=== PATIENT | female | born 1950 | race Caucasian/White ===

== ENCOUNTER → 2023-05-28 | Outpatient (CLI) | payer MEDICARE, OTHER ==
--- NOTE | 2023-05-28 14:59 | MR ---
MR MRCP INDICATION: Patient age:Female; 72 years old; Reason for study: K80.20 CALCULUS OF GALLBLADDER W/O CHOLECYSTITIS W; [facility]. COMPARISON: None. TECHNIQUE: Multi planar, T2-weighted imaging with and without fat saturation and chemical shift imag ing was performed of the abdomen. Then, heavily T2 weighted imaging was utilized in order to study th e biliary system. Maximum intensity projection images were reconstructed from the original data of t he biliary tree. No Gadolinium given. FINDINGS: MRCP: The intrahepatic ducts have a normal appearance. The common bile duct at the level of the ames creatic head measures 4 mm in size. No filling defects to suggest choledocholithiasis. The common hep atic duct measures 3 mm in size. The pancreatic duct is normal. The gallbladder is surgically absent. Abdomen: The spleen, adrenal glands, and pancreas have a normal noncontrast appearance. Inferior righ t hepatic lobe T2 hyperintense 1.1 cm cyst. No hydronephrosis. Bilateral renal cysts. There is a righ t superior pole cyst measuring up to 4.9 cm with mural nodularity. This component measures up to 2.1 cm (series 401, image 26). Additional inferior pole right kidney 1.5 cm lesion that is T1 hyperintens e/ T2 hypointense (series 401, image 28). Additional subcentimeter T1 hyperintense posterior left mid kidney foci. Partial visualization of left periumbilical hernia containing nondilated colon. The def ect measures up to 6.3 cm. Cardiomegaly. IMPRESSION: 1. No evidence to suggest ductal stricture, choledocholithiasis, or biliary ductal dilatation. 2. Postcholecystectomy changes. 3. Bilateral renal cysts with a right renal superior pole 4.9 cm cyst containing mural nodularity. A dditional inferior pole right kidney indeterminate 1.5 cm lesion. Could represent proteinaceous/hemor rhagic cysts. Correlation with prior imaging is recommended. If no prior imaging available, consider further evaluation with CT or MR abdomen renal mass protocol. 4. Partial visualization of periumbilical hernia containing nondilated colon.
== END | disposition home or self-care (01) ==
LOC: RADMRIMAIN 13:21
DX: K80.20 Calculus of gallbladder without cholecystitis without obstruction (principal); R79.89 Other specified abnormal findings of blood chemistry; N28.1 Cyst of kidney, acquired; K42.9 Umbilical hernia without obstruction or gangrene; Z90.49 Acquired absence of other specified parts of digestive tract
CPT/HCPCS: 74181